=== PATIENT | female | born 1955 | race American Indian/Alaskan Native ===

== ENCOUNTER 2017-08-06 09:12 | Outpatient (CLI) | payer OTHER ==
--- NOTE | 2017-08-06 16:39 | Mammography Report ---
BILATERAL DIGITAL SCREENING MAMMOGRAM with CAD: 08/06/17 09:12:00 CLINICAL: Routine screening. COMPARISON:05/04/13 FINDINGS: The breasts are almost entirely fatty.A stable partially circumscribed left upper outer breast mass with a biopsy clip. A left upper outer 7 mm benign intraparenchymal lymph node with a fatty hilum is unchanged compared to the prior exam. No new mass, architectural distortion or suspicious calcifications. IMPRESSION: No mammographic evidence of malignancy. BI-RADS CATEGORY: 2 -- Benign RECOMMENDATION: Routine mammographic screening in one year. COMMENT: Patient follow-up letters are generated by our [employer] application.
== END 2017-08-06 09:13 | disposition home or self-care (01) ==
LOC: SPVWC 09:12
PROVIDERS: ATTEND Internal Medicine
DX: Z12.31 Encounter for screening mammogram for malignant neoplasm of breast (principal)
CPT/HCPCS: 77067; G0202

== ENCOUNTER 2018-08-08 11:24 | Outpatient (CLI) | payer OTHER ==
--- NOTE | 2018-08-08 12:37 | Mammography Report ---
Bilateral mammogram: Compared to 08/06/17. CAD study utilized. Findings: Predominance adipose tissue bilaterally. No mass or microcalcification. Benign densities left breast. Normal axilla. Impression: Benign findings. Annual followup recommended. BI-RADS CATEGORY: 2 = Benign ACR BI-RADS MAMMOGRAPHIC CODES: 0 = Needs additional imaging evaluation; 1 = Negative; 2 = Benign; 3 = Probably benign; 4 = Suspicious; 5 = Malignant; 6 = Known biopsy-proven malignancy COMMENT: 1. Dense breast tissue, i.e., adenosis, fibrocystic changes, etc., may obscure an underlying neoplasm. 2. Approximately 10% of cancers are not detected with mammography. 3. A negative mammography report should not delay biopsy if a clinically suspicious mass is present. COMMENT: Patient follow-up letters are generated in [employer].
== END 2018-08-08 11:25 | disposition home or self-care (01) ==
LOC: SPVWC 11:24
PROVIDERS: ATTEND Internal Medicine
DX: Z12.31 Encounter for screening mammogram for malignant neoplasm of breast (principal)
CPT/HCPCS: 77067